=== PATIENT | male | born 1995 | race Caucasian/White ===

== ENCOUNTER 2016-11-06 18:24 | Emergency (ER) | payer SELFPAY ==
[~2016-11-06] VITALS: Ht 177.8 cm; Wt 85.8 kg
[~2016-11-06 18:24] MED LIST: ACYC-223 PO; OXYC-106 PO
[2016-11-06 18:35] VITALS: BP 124/73; PULSE 88; TEMP 37.1; O2SAT 97; Ht 177.8 cm; Wt 85.8 kg
--- NOTE | 2016-11-06 19:14 | DIAGNOSTIC IMAGING REPORT ---
LEFT ANKLE 3 VIEWS CLINICAL HISTORY: Left ankle injury. Fall one day previously. FINDINGS: 3 views of the left ankle are obtained. No prior studies are available for comparison at the time of dictation. The skeletal structures are well mineralized. No fracture is seen. The ankle mortise is intact. An os trigonum is incidentally noted. There is a small joint effusion and mild soft tissue swelling is observed. IMPRESSION: Mild soft tissue swelling and small joint effusion. No fracture is seen. Electronically signed by: Jean-Paul Gutierrez M.D. 11/06/2016 7:12 PM Dictated Date/Time: 11/06/2016 7:12 PM
--- NOTE | 2016-11-06 23:39 | EMERGENCY ROOM VISIT NOTE ---
ED Visit Note First contact with patient: 18:42 CHIEF COMPLAINT: Ankle pain HISTORY OF PRESENT ILLNESS: This 21-year-old male patient presents to the emergency department after sustaining an injury to the left ankle and foot with a twisting, inversion motion after stepping down stairs last evening. The patient complains of pain along the outside of the ankle. The patient is without pain of the foot. The patient rates the pain as dull and 7/10. The patient is not comfortably able to bear weight on the foot. Constant pain, worse with movement, weight bearing, and the dependent position. No knee pain, the patient is able to move their toes. No numbness or weakness of the foot, no laceration. The patient has not had a previous fracture to this ankle. The patient has taken nothing for the pain. The patient denies any other injury. REVIEW OF SYSTEMS: A 6 system review of systems was completed with positives and pertinent negatives listed in the HPI. ALLERGIES: No known allergies MEDICATIONS: No chronic medications PMH: Otherwise healthy SOCIAL HISTORY: Lives locally PHYSICAL EXAM: Vital Signs: Reviewed Nurse's notes, vital signs stable. GENERAL : Black male, no acute distress, but appears in pain, well-developed, well- nourished. MENTAL STATUS: Alert, oriented to person place and time, and cooperative. MUSCULOSKELETAL: The left ankle is swollen and tender over the lateral malleolus, but the skin is intact and there is no ligamentous instability. There is no fifth metatarsal tenderness. There is no tenderness over the rest of the foot. There is no calf or tibia/fibular tenderness. There is no visual deformity. The foot and toes are warm and well-perfused. Dorsalis pedis pulse 2+. Sensation to pain and light touch is intact. Capillary refill less than 2 seconds. LEFT ANKLE 3 VIEWS CLINICAL HISTORY: Left ankle injury. Fall one day previously. FINDINGS: 3 views of the left ankle are obtained. No prior studies are available for comparison at the time of dictation. The skeletal structures are well mineralized. No fracture is seen. The ankle mortise is intact. An os trigonum is incidentally noted. There is a small joint effusion and mild soft tissue swelling is observed. IMPRESSION: Mild soft tissue swelling and small joint effusion. No fracture is seen. EMERGENCY DEPARTMENT COURSE: Physical exam and history were performed. Nursing notes and EMR were reviewed. The patient appears to have injured himself last evening. X-ray was obtained and does not show evidence of acute fracture or dislocation. The patient does have a walking boot with him, that he borrowed from a friend. I did offer a gel ankle splint and crutches, but the patient refused as he feels comfortable using the walking boot. The patient was given discharge instructions as below and was otherwise invited back to the ER with any new, worsening, or concerning symptoms. Problem List Medical Problems: (1) Chicken pox Status: Resolved Current/Historical Medications No Active Prescriptions or Reported Meds Allergies Coded Allergies: No Known Allergies (Unverified , 07/03/13) Vital Signs Date Time Temp Pulse Resp B/P Pulse Ox O2 Delivery O2 Flow Rate FiO2 11/06/16 18:35 37.1 88 20 124/73 97 Room Air Departure Information Impression Primary Impression: Injury of left ankle Dispostion Home / Self-Care Condition GOOD Prescriptions No Active Prescriptions or Reported Meds Referrals Lincoln Zhang D.O. Forms HOME CARE DOCUMENTATION FORM, IMPORTANT VISIT INFORMATION Patient Instructions [facility] Additional Instructions You were seen and evaluated today on an emergency basis only. This is not a substitute for, or an effort to provide, complete comprehensive medical care. It is not possible to recognize and treat all injuries or illnesses in a single emergency department visit. For this reason it is recommended that you followup with Orthopedics, Dr. Zhang's office, with any ongoing or persistent symptoms. Use your walking boot for the next 4-5 days then slowly advance activity as tolerated. If you have persistent pain after this please follow with orthopedics. For baseline pain relief you may alternate ibuprofen and acetaminophen every 4 hours for pain control. Take 600 mg ibuprofen (Advil) and then 4 hours later take 1000 mg acetaminophen (Tylenol). Do not take more than 3000 mg acetaminophen in a single day. You are welcome to return to the emergency department anytime with new, worsening, or concerning symptoms.
== END 2016-11-06 20:04 | disposition home or self-care (01) ==
LOC: C.EDB 18:25 → C.EDD 20:04
DX: S99.912A Unspecified injury of left ankle, initial encounter (principal); X50.9XXA Other and unspecified overexertion or strenuous movements or postures, initial encounter